=== PATIENT | male | born 1990 | race Caucasian/White ===

== ENCOUNTER 2016-07-02 10:38 | Inpatient (IN) | payer SELFPAY ==
[~2016-07-02] VITALS: Ht 172.7 cm; Wt 60.9 kg
[2016-07-02 12:37] LABS: HEMATOCRIT 40.8 % (38.0-50.0); MCH 30.3 PG (29.0-34.0); MCV 86.4 FL (86-99); MEAN PLAT.VOLUME 10.4 uM^3 (9.0-12.4); PLATELET COUNT 203 K/uL (156-360); RBC DIS.WIDTH-CV 11.9 % (11.8-14.6); RBC DIS.WIDTH-SD 36.9 % (39-53); RED BLOOD COUNT 4.72 M/uL (4.00-5.50); WHITE BLOOD COUNT 7.5 K/uL (4.1-10.2)
[2016-07-02 12:45] LABS: CHLORIDE 109 mEq/L (99-109); POTASSIUM 3.9 mEq/L (3.7-5.4); SODIUM 143 mEq/L (136-147)
[2016-07-02 12:47] LABS: GLUCOSE 98 mg/dL (70-99)
[2016-07-02 12:48] LABS: ANION GAP 10 MEQ/L (2-14)
[2016-07-02 12:49] LABS: TOTAL BILIRUBIN 0.4 mg/dL (0.0-1.0)
[2016-07-02 12:50] LABS: ALKALINE PHOSPHATASE 70 IU/L (3-129)
[2016-07-02 12:51] LABS: GFR ESTIMATE (CALCULATED) > 59 mL/min/
[2016-07-02 12:52] LABS: UREA NITROGEN (BUN) 9 mg/dL (9-23)
[2016-07-02 13:59] LABS: ADD MIUA? NO; BILIRUBIN NEGATIVE; BLOOD NEGATIVE; COLOR STRAW ((YELLOW)); GLUCOSE (STRIP) NEGATIVE; KETONES NEGATIVE; LEUKOCYTES NEGATIVE; NITRITE NEGATIVE; PROTEIN (STRIP) NEGATIVE; SPECIFIC GRAVITY 1.009 (1.000-1.030); UCUL ADDED? NO; UROBILINOGEN 0.2 MG/DL (0.2-1.0)
[2016-07-02 14:21] VITALS: BP 124/77
[2016-07-02 14:23] LABS: AMPHETAMINE NEGATIVE (500 ng/mL); BARBITURATES NEGATIVE (200 ng/mL); BENZODIAZEPINES NEGATIVE (150 ng/mL); COCAINE NEGATIVE (150 ng/mL); INTERNAL CONTROLS VALID? YES; METHADONE NEGATIVE (200 ng/mL); METHAMPHETAMINE NEGATIVE (500 ng/mL); OPIATES (MORPHINE) NEGATIVE (100 ng/mL); OXYCODONE NEGATIVE (100 ng/mL); PHENCYCLIDINE NEGATIVE (25 ng/mL); PROPOXYPHENE NEGATIVE (300 ng/mL); THC CANNABINOIDS NEGATIVE (50 ng/mL); TRICYCLIC ANTIDEPRESSANTS NEGATIVE (300 ng/mL)
[2016-07-02 15:31] VITALS: BP 113/53
[2016-07-03 08:14] VITALS: BP 117/64
[2016-07-03 15:10] VITALS: BP 121/56
[2016-07-04 07:46] VITALS: BP 117/58
[2016-07-04 15:50] VITALS: BP 126/58
[2016-07-05 08:11] VITALS: BP 128/76
[2016-07-05 15:14] VITALS: BP 111/70
[2016-07-06 07:47] VITALS: BP 115/61
[2016-07-06] MEDS ORDERED: FLUOXETINE HCL10 MG PO (09:41)
[2016-07-06] MEDS ORDERED: LITHIUM CARBON300 M2 PO (09:41)
== END 2016-07-06 13:11 | disposition home or self-care (01) | DRG 885 ==
LOC: EME 10:38 → 1WEST 13:21 → EDOF 13:21 → 1WEST 13:21
PROVIDERS: Emergency Medicine
DX: F31.81 Bipolar II disorder (principal); F41.9 Anxiety disorder, unspecified; F64.9 Gender identity disorder, unspecified; Z62.810 Personal history of physical and sexual abuse in childhood; Z63.8 Other specified problems related to primary support group
CPT/HCPCS: 80053; 80178; 81003; 85027; 90839; 97150 GO; 97165 GO; 99281; 99285; Q0177